=== PATIENT | female | born 1990 | race Caucasian/White ===

== ENCOUNTER 2020-09-09 13:03 | Day surgery (SDC) | payer OTHER ==
[~2020-09-09 13:03] MED LIST: OBSTETRIX EC C1 EACH PO
[2020-09-09] MEDS ORDERED: KETO10TA2 PO (18:14)
[2020-09-09] MEDS ORDERED: ACETAMINOPHEN-1 EAC2 PO (18:15)
== END 2020-09-09 19:25 | disposition home or self-care (01) ==
LOC: CIR.AMB 13:03
PROVIDERS: ATTEND Obstetrics & Gynecology
DX: Z30.2 Encounter for sterilization (principal); Z20.822 Contact with and (suspected) exposure to COVID-19